=== PATIENT | female | born 1990 | race African-American/Black ===

== ENCOUNTER 2017-06-15 07:05 | Emergency (ER) | payer OTHER ==
[~2017-06-15] VITALS: Ht 167.6 cm; Wt 72.0 kg
[2017-06-15 07:07] VITALS: BP 136/88
== END 2017-06-15 07:49 | disposition home or self-care (01) ==
LOC: ED 07:43
DX: K02.9 Dental caries, unspecified (principal)
CPT/HCPCS: 99283